=== PATIENT | female | born 1975 | race Caucasian/White ===

== ENCOUNTER 2017-06-29 08:56 | Day surgery (SDC) | payer BC ==
[~2017-06-29] VITALS: Ht 162.6 cm; Wt 81.2 kg
[~2017-06-29 08:56] MED LIST: ONE DAILY WOME1 EACH PO
[2017-06-29 09:52] VITALS: BP 130/63
[2017-06-29] MEDS ORDERED: DILAUDID2 MG PO (14:57)
[2017-06-29 16:20] VITALS: BP 137/74
[2017-06-29 17:16] VITALS: BP 123/67
[2017-06-29 17:59] VITALS: BP 129/66
== END 2017-06-29 18:03 | disposition home or self-care (01) ==
LOC: SDC 08:56
PROVIDERS: Anesthesiology
PROC: 0HBU0ZX Excision of Left Breast, Open Approach, Diagnostic (ICD-10-PCS; principal; 2017-06-29)
DX: D24.2 Benign neoplasm of left breast (principal)
CPT/HCPCS: 81025; 88307; J1100; J2250; J2405; J2765; J3010; S0020